=== PATIENT | female | born 1965 | race Caucasian/White ===

== ENCOUNTER 2017-04-18 14:28 | Emergency (ER) | payer MEDICARE ==
[~2017-04-18] VITALS: Ht 170.2 cm; Wt 54.4 kg
--- NOTE | 2017-04-18 15:03 | PHYS DOC ---
Past History Past Medical History: Hypotension, Other Past Surgical History: Cholecystectomy, Other Alcohol Use: None Drug Use: None Adult General Chief Complaint Chief Complaint: SORE THROAT HPI HPI Patient is a 52 year old female who presents with complaint of a lump on her neck. Patient states that she noticed the lump 2 days ago. Patient states over the past 2-3 months she has been having trouble with sore throat. Patient states that her sore throat started to resolve, then patient noticed that she had a lump along the right side of her neck. The patient called her primary care physician's office, and she was instructed to come to the emergency department for further evaluation. Patient denies any shortness of breath or fever associated with her symptoms. Patient states she is otherwise at her baseline state of health. Review of Systems Review of Systems Constitutional: Denies fever or chills [] Eyes: Denies change in visual acuity, redness, or eye pain [] HENT: Sore throat[] Respiratory: Denies cough or shortness of breath [] Cardiovascular: Denies chest pain or edema[] GI: Denies abdominal pain, nausea, vomiting, bloody stools or diarrhea [] : Denies dysuria or hematuria [] Musculoskeletal: Denies back pain or joint pain [] Integument: Denies rash or skin lesions [] Neurologic: Denies headache, focal weakness or sensory changes [] Allergies Allergies Allergies Coded Allergies Type Severity Reaction Last Updated Verified amoxicillin Allergy Intermediate rash 06/06/16 Yes sulfamethoxazole Allergy Intermediate sob 06/06/16 Yes trimethoprim Allergy Intermediate sob 06/06/16 Yes Physical Exam Physical Exam Constitutional: Alert, afebrile, no acute distress. [] HENT: Normocephalic, atraumatic, bilateral external ears normal, oropharynx moist, no oral exudates, nose normal. [] Eyes: PERRLA, EOMI, conjunctiva normal, no discharge. [] Neck: Normal range of motion, 2-1/2 cm right-sided nodular swelling overlying thyroid, supple, no stridor. [] Cardiovascular:Heart rate regular rhythm, no murmur [] Lungs & Thorax: Bilateral breath sounds clear to auscultation [] Abdomen: Bowel sounds normal, soft, no tenderness, no masses, no pulsatile masses. [] Skin: Warm, dry, no erythema, no rash. [] Back: No tenderness, no CVA tenderness. [] Extremities: No tenderness, no cyanosis, no clubbing, ROM intact, no edema. [] Neurologic: Alert and oriented X 3, normal motor function, normal sensory function, no focal deficits noted. [] Current Patient Data Vital Signs Vital Signs Date Time Temp Pulse Resp B/P (MAP) Pulse Ox O2 Delivery O2 Flow Rate FiO2 04/18/17 14:44 98.1 81 20 98 Room Air EKG EKG Not performed[] Radiology/Procedures Radiology/Procedures [address] [id number] IMAGING REPORT Signed PATIENT: CONNER MENARD ACCOUNT: [id number] : 1965 LOCATION: ER AGE: 52 SEX: F EXAM STATUS: REG ER ORD. PHYSICIAN: CAMDEN DUNN MD REASON: right-sided neck swelling, possible nodule PROCEDURE: THYROID ULTRASOUND Ultrasound thyroid Indication: Right-sided neck pain came up yesterday. Patient is on chemotherapy for brain cancer. Technique: Grayscale and color Doppler ultrasound images of the thyroid Comparison: None Findings: The right thyroid lobe measures 4.9 x 2.3 x 2.3 cm with diffusely heterogenous echogenicity. There is a predominantly hypoechoic nodule in the inferior right thyroid lobe measuring 1.6 x 1.1 x 1.4 cm which is well-circumscribed without internal calcifications. Significant vascularity seen in the right thyroid lobe. The left thyroid lobe measures 5.4 x 2.3 x 2.1 cm and is diffusely heterogenous in echogenicity. There is a relatively well-circumscribed mixed echogenicity solid nodule in the inferior pole of the left thyroid measuring 1.4 x 1.4 x 1.1 cm. Second similar lesion superior to the above-mentioned lesion measures 2.3 x 1.8 x 1.5 cm and is well-circumscribed, is wider than taller. Another similar lesion is seen in the superior aspect of the thyroid measuring 1.6 x 1.5 x 1.4 cm. Significant vascularity is seen in the thyroid. No abscess or hematoma. Impression: 1. Significant alteration of the thyroid parenchyma with diffusely heterogenous appearance and multiple nodules as described above. This is nonspecific and may represent multinodular goiter. No abscess or hematoma. Correlate with thyroid function lab values. Nuclear medicine thyroid uptake scan recommended for further evaluation. Thyroid malignancy not ruled out. Follow-up thyroid ultrasound in 3-6 months recommended. DICTATED AND SIGNED BY: JING THOMPSON DO DATE: 04/18/17 1611 CC: CAMDEN DUNN MD; TINA MATHEWS APRN ~ [] Course & Med Decision Making Course & Med Decision Making Pertinent Labs and Imaging studies reviewed. (See chart for details) Ultrasound results show findings concerning for malignancy. Spoke with the patient regarding these findings. The patient is in no acute distress and patient would like to go home at this time. She states that she will follow-up with her primary doctor in the next 3 days for reevaluation and referral for oncology. I do not feel this to be unreasonable and I do not feel that the patient's symptoms will change significantly over the course of the next few days before her reevaluation. I did stress however that if she does have any worsening or severe symptoms including severe shortness of breath, inability to swallow or handle oral secretions, high fevers, or any other worrisome symptoms that she return to the emergency department for reevaluation. Patient voiced understanding and in agreement with treatment plan. Dragon Disclaimer Dragon Disclaimer This chart was dictated in whole or in part using Voice Recognition software in a busy, high-work load, and often noisy Emergency Department environment. It may contain unintended and wholly unrecognized errors or omissions. Departure Departure: Impression: Primary Impression: Multiple thyroid nodules Disposition: HOME, SELF-CARE Condition: STABLE Referrals: TINA MATHEWS APRN (PCP) Patient Instructions: Thyroid Cancer Additional Instructions: Your ultrasound study in the emergency Department showed multiple nodules and your thyroid concerning for possible thyroid cancer. It is recommended that she follow-up in the next 3-5 days with your primary doctor as she will also likely need referral to oncology for further evaluation and treatment. Return to the emergency department for any worsening symptoms. CAMDEN DUNN MD Apr 18, 2017 15:03
--- NOTE | 2017-04-18 16:23 | RAD ---
Ultrasound thyroid Indication: Right-sided neck pain came up yesterday. Patient is on chemotherapy for brain cancer. Technique: Grayscale and color Doppler ultrasound images of the thyroid Comparison: None Findings: The right thyroid lobe measures 4.9 x 2.3 x 2.3 cm with diffusely heterogenous echogenicity. There is a predominantly hypoechoic nodule in the inferior right thyroid lobe measuring 1.6 x 1.1 x 1.4 cm which is well-circumscribed without internal calcifications. Significant vascularity seen in the right thyroid lobe. The left thyroid lobe measures 5.4 x 2.3 x 2.1 cm and is diffusely heterogenous in echogenicity. There is a relatively well-circumscribed mixed echogenicity solid nodule in the inferior pole of the left thyroid measuring 1.4 x 1.4 x 1.1 cm. Second similar lesion superior to the above-mentioned lesion measures 2.3 x 1.8 x 1.5 cm and is well-circumscribed, is wider than taller. Another similar lesion is seen in the superior aspect of the thyroid measuring 1.6 x 1.5 x 1.4 cm. Significant vascularity is seen in the thyroid. No abscess or hematoma. Impression: 1. Significant alteration of the thyroid parenchyma with diffusely heterogenous appearance and multiple nodules as described above. This is nonspecific and may represent multinodular goiter. No abscess or hematoma. Correlate with thyroid function lab values. Nuclear medicine thyroid uptake scan recommended for further evaluation. Thyroid malignancy not ruled out. Follow-up thyroid ultrasound in 3-6 months recommended.
[2017-04-18 17:25] VITALS: BP 124/84
== END 2017-04-18 17:25 | disposition home or self-care (01) ==
LOC: ER 14:28
DX: E04.2 Nontoxic multinodular goiter (principal); Z88.1 Allergy status to other antibiotic agents
CPT/HCPCS: 76536; 99284-25

== ENCOUNTER 2017-09-25 18:15 | Inpatient (IN) | payer MEDICARE ==
[~2017-09-25] VITALS: Ht 170.2 cm; Wt 51.4 kg
[2017-09-25 19:17] LABS: BASO % 1 % (0-3); EOS # 0.1 x10^3/uL (0.0-0.7); EOS % 6 % (0-3); HEMATOCRIT 34.6 % (36.0-47.0); HEMOGLOBIN 12.1 g/dL (12.0-15.5); LYMPH # 0.3 x10^3/uL (1.0-4.8); LYMPH % 13 % (24-48); MEAN CORPUSCULAR HEMOGLOBIN 33 pg (25-35); MEAN CORPUSCULAR HGB CONC 35 g/dL (31-37); MEAN CORPUSCULAR VOLUME 94 fL (79-100); MONO # 0.3 x10^3/uL (0.0-1.1); MONO % 13 % (0-9); NEUT # 1.6 x10^3uL (1.8-7.7); NEUT % 67 % (31-73); PLATELET COUNT 174 x10^3/uL (140-400); RED BLOOD COUNT 3.68 x10^6/uL (3.50-5.40); RED CELL DISTRIBUTION WIDTH 12.6 % (11.5-14.5); WHITE BLOOD COUNT 2.4 x10^3/uL (4.0-11.0)
--- NOTE | 2017-09-25 19:23 | RAD ---
CT HEAD WO CONTRAST History: Speech changes, migraine headache today, history of brain cancer and tumor removal Comparison: June 06, 2016 Technique: Noncontrast CT imaging was performed of the head. Exposure: One or more of the following individualized dose reduction techniques were utilized for this examination: 1. Automated exposure control 2. Adjustment of the mA and/or kV according to patient size 3. Use of iterative reconstruction technique. Findings: No acute intracranial hemorrhage is identified. There has been left frontal parietal temporal craniotomy, large resection cavity centered in the left frontal lobe overall larger than previous exam. Some other ill-defined low-density such as of the left frontal lobe is fairly similar in extent, may be due to component of underlying gliosis. Ventricular size is similar, ex vacuo dilatation left lateral ventricle. There is no midline shift. There is no significant intracranial mass effect. Mastoid air cells and visualized paranasal sinuses are aerated. Impression: 1. There are postsurgical changes, large resection cavity centered in the left frontal lobe. There is no intracranial mass effect or evidence of recent hemorrhage. If there is suspicion for evolving or acute ischemia, follow-up CT or MRI may be beneficial. Electronically signed by: Meliton Dobson MD (09/25/2017 7:20 PM) [facility]
[2017-09-25 19:30] LABS: ALBUMIN 3.3 g/dL (3.4-5.0); ALBUMIN/GLOBULIN RATIO 0.9 (1.0-1.7); CALCIUM 8.7 mg/dL (8.5-10.1); CREATININE 1.1 mg/dL (0.6-1.0); GFR 52.2; POTASSIUM 4.2 mmol/L (3.5-5.1); TOTAL BILIRUBIN 0.4 mg/dL (0.2-1.0); TOTAL PROTEIN 6.9 g/dL (6.4-8.2)
[2017-09-25] MEDS ORDERED: ONDANSETRON PF 4 MG/2 ML VIAL. IV PRN (20:00)
--- NOTE | 2017-09-25 20:30 | PHYS DOC ---
Past History Past Medical History: Hypotension, Other Past Surgical History: Cholecystectomy, Other Alcohol Use: None Drug Use: None Adult General Chief Complaint Chief Complaint: SLURRED SPEECH HPI HPI 52-year-old female with a history of brain cancer with multiple tumors removed from her frontal lobe in August of last year. Patient describes that for months after that surgery she had some abnormalities in her speech and word finding. Her speech returned to normal and patient had been doing well. She is on an oral chemotherapeutic medication currently. Prior to arrival here patient experienced an episode of speech changes were family member describes patient was saying words that were gibberish. Patient states she knew what she wanted to say but the words would not come out correctly. This spontaneously resolved after a short period and she's been at her baseline since. No other complaints. No visual changes or weakness. Patient otherwise asymptomatic with no headache or stiff neck no chest pain or shortness of breath no fevers chills sweats or shaking chills and no abdominal pain. Reports normal bowel bladder habits Review of Systems Review of Systems Constitutional: Denies fever or chills [] Eyes: Denies change in visual acuity, redness, or eye pain [] HENT: Denies nasal congestion or sore throat [] Respiratory: Denies cough or shortness of breath [] Cardiovascular: No additional information not addressed in HPI [] GI: Denies abdominal pain, nausea, vomiting, bloody stools or diarrhea [] : Denies dysuria or hematuria [] Musculoskeletal: Denies back pain or joint pain [] Integument: Denies rash or skin lesions [] Neurologic: Denies headache, focal weakness or sensory changes [] Endocrine: Denies polyuria or polydipsia [] All other systems were reviewed and found to be within normal limits, except as documented in this note. Current Medications Current Medications Current Medications Medications (Trade) Dose Ordered Sig/Shelby Start Time Stop Time Status Last Admin Dose Admin Ondansetron HCl (Zofran) 4 mg PRN Q4HRS PRN 09/25/17 20:00 09/26/17 19:59 Sodium Chloride 1,000 ml @ 125 mls/hr Q8H 09/25/17 19:56 09/26/17 19:55 Allergies Allergies Allergies Coded Allergies Type Severity Reaction Last Updated Verified amoxicillin Allergy Intermediate rash 06/06/16 Yes sulfamethoxazole Allergy Intermediate sob 06/06/16 Yes trimethoprim Allergy Intermediate sob 06/06/16 Yes Physical Exam Physical Exam Chronically weak appearing 52-year-old female in no acute distress. She is cheerful alert communicative and cooperative with normal speech. Patient able to converse normally with baseline mental status. She is a nonfocal neurologic exam and is able to ambulate without difficulty with her cane Constitutional: Well developed, well nourished, no acute distress, non-toxic appearance. [] HENT: Normocephalic, atraumatic, bilateral external ears normal, oropharynx moist, no oral exudates, nose normal. [] Eyes: PERRLA, EOMI, conjunctiva normal, no discharge. [] Neck: Normal range of motion, no tenderness, supple, no stridor. [] Cardiovascular:Heart rate regular rhythm, no murmur [] Lungs & Thorax: Bilateral breath sounds clear to auscultation [] Abdomen: Bowel sounds normal, soft, no tenderness, no masses, no pulsatile masses. [] Skin: Warm, dry, no erythema, no rash. [] Back: No tenderness, no CVA tenderness. [] Extremities: No tenderness, no cyanosis, no clubbing, ROM intact, no edema. [] Neurologic: Alert and oriented X 3, normal motor function, normal sensory function, no focal deficits noted. [] Psychologic: Affect normal, judgement normal, mood normal. [] Current Patient Data Vital Signs Vital Signs Date Time Temp Pulse Resp B/P (MAP) Pulse Ox O2 Delivery O2 Flow Rate FiO2 09/25/17 20:08 70 18 92/59 (70) 100 Room Air 09/25/17 18:37 98.1 Lab Results Laboratory Tests Test 09/25/17 19:06 White Blood Count 2.4 x10^3/uL (4.0-11.0) L Red Blood Count 3.68 x10^6/uL (3.50-5.40) Hemoglobin 12.1 g/dL (12.0-15.5) Hematocrit 34.6 % (36.0-47.0) L Mean Corpuscular Volume 94 fL (79-100) Mean Corpuscular Hemoglobin 33 pg (25-35) Mean Corpuscular Hemoglobin Concent 35 g/dL (31-37) Red Cell Distribution Width 12.6 % (11.5-14.5) Platelet Count 174 x10^3/uL (140-400) Neutrophils (%) (Auto) 67 % (31-73) Lymphocytes (%) (Auto) 13 % (24-48) L Monocytes (%) (Auto) 13 % (0-9) H Eosinophils (%) (Auto) 6 % (0-3) H Basophils (%) (Auto) 1 % (0-3) Neutrophils # (Auto) 1.6 x10^3uL (1.8-7.7) L Lymphocytes # (Auto) 0.3 x10^3/uL (1.0-4.8) L Monocytes # (Auto) 0.3 x10^3/uL (0.0-1.1) Eosinophils # (Auto) 0.1 x10^3/uL (0.0-0.7) Basophils # (Auto) 0.0 x10^3/uL (0.0-0.2) Platelet Estimate Pending Sodium Level 139 mmol/L (136-145) Potassium Level 4.2 mmol/L (3.5-5.1) Chloride Level 104 mmol/L (98-107) Carbon Dioxide Level 28 mmol/L (21-32) Anion Gap 7 (6-14) Blood Urea Nitrogen 15 mg/dL (7-20) Creatinine 1.1 mg/dL (0.6-1.0) H Estimated GFR (Cockcroft-Gault) 52.2 BUN/Creatinine Ratio 14 (6-20) Glucose Level 126 mg/dL (70-99) H Calcium Level 8.7 mg/dL (8.5-10.1) Total Bilirubin 0.4 mg/dL (0.2-1.0) Aspartate Amino Transferase (AST) 22 U/L (15-37) Alanine Aminotransferase (ALT) 37 U/L (14-59) Alkaline Phosphatase 100 U/L (46-116) Troponin I Quantitative < 0.017 ng/mL (0-0.055) Total Protein 6.9 g/dL (6.4-8.2) Albumin 3.3 g/dL (3.4-5.0) L Albumin/Globulin Ratio 0.9 (1.0-1.7) L EKG EKG EKG normal sinus rhythm at 73 normal axis no STEMI nonspecific ST and T-wave findings interpreted by il Radiology/Procedures Radiology/Procedures [] Course & Med Decision Making Course & Med Decision Making Signs and symptoms consistent with TIA with speech changes with spontaneous resolution. Patient stable and exam unremarkable and nonfocal. Full workup shows leukopenia with white blood cell count 2.4 with normal neutrophils. Case discussed with Dr. Mae hospitalist on-call. He is aware the history and findings and agrees with inpatient admission to a telemetry bed for full TIA workup. Pertinent Labs and Imaging studies reviewed. (See chart for details) [] Dragon Disclaimer Dragon Disclaimer This electronic medical record was generated, in whole or in part, using a voice recognition dictation system. Departure Departure: Impression: Primary Impression: TIA (transient ischemic attack) Additional Impression: Episode of change in speech Disposition: 09 ADMITTED INPATIENT Admitting Physician: Juan Luis Mae Condition: STABLE Referrals: TINA MATHEWS APRN (PCP) Problem Qualifiers JORDAN CAMPUZANO MD Sep 25, 2017 20:30
[2017-09-25 20:46] LABS: % BASOS 2 % (0-3); % EOS 3 % (0-5); % LYMPHS 13 % (24-48); % MONOS 12 % (0-10); % SEGS 70 % (35-66)
[2017-09-25 21:50] VITALS: BP 108/60
[2017-09-25] MEDS ORDERED: TEMO20CA PO (21:51)
[2017-09-25] MEDS ORDERED: LORazepam 1 MG TABLET PO SCH (22:00)
[2017-09-25 22:06] LABS: PLT ESTIMATE ADEQUATE (ADEQUATE)
[2017-09-25 22:16] LABS: OVALOCYTES FEW
[2017-09-25] MEDS: TEMOZOLOMIDE 20 MG PO SCH (22:31)
[2017-09-25] MEDS: IV NORMAL SALINE 1,000ML 1,000 ML IV SCH (22:33)
[2017-09-25 23:00] VITALS: BP 82/53
[2017-09-26] VITALS (8 sets, daily range): BP systolic 77–95; BP diastolic 48–60
[2017-09-26] MEDS: IV NORMAL SALINE 1,000ML 1,000 ML IV SCH (05:28)
[2017-09-26] MEDS ORDERED: LEVOTHYROXINE 25 MCG TABLET. PO SCH (07:00)
[2017-09-26] MEDS ORDERED: CELECOXIB 200 MG CAPSULE PO SCH (09:00)
--- NOTE | 2017-09-26 09:13 | EKG ---
[address] [address] Test Date: 2017-09-25 Test Time: 18:54:48 Pat Name: CONNER MENARD Department: Room: Gender: F Staff Midwife/Apprenticeship Director: MANUELA : 1965 Requested By: JORDAN CAMPUZANO Order Number: [id number] Reading MD: Measurements Intervals Almo Rate: 73 P: 42 [place]: 168 QRS: 63 QRSD: 66 T: 48 QT: 386 QTc: 429 Interpretive Statements SINUS RHYTHM T ABNORMALITY IN ANTEROSEPTAL LEADS ABNORMAL ECG RI6.01 No previous ECG available for comparison
[2017-09-26] MEDS: TEMOZOLOMIDE 20 MG PO SCH (12:01)
[2017-09-26] MEDS ORDERED: ONDA4TAB11 PO (13:17)
[2017-09-26] MEDS ORDERED: CELE200C PO (13:17)
[2017-09-26] MEDS ORDERED: LEVO25TA4 PO (13:17)
[2017-09-26] MEDS ORDERED: LORA1TAB PO (13:17)
[2017-09-26] MEDS ORDERED: ONDANSETRON ODT 4 MG TAB.RAPDIS PO PRN (13:30)
--- NOTE | 2017-09-26 18:30 | SSS ---
ADMIT DATE: 09/26/2017 HISTORY OF PRESENT ILLNESS: The patient is a 52-year-old female patient, who is known to have a brain tumor that removed from her frontal lobe in 08/2016. She stated that she had for 4 months. After that the surgery, she had some abnormalities in her speech and word finding. Her speech has finally returned to normal and the patient had been doing well. She is on oral chemotherapeutic medication. Prior to arrival to the Emergency Room, she experienced an episode of speech changes that the family describes as gibberish. She stated that she knew what she wanted to say, but the words would not come out correctly. This has spontaneously resolved after a short period of time and by the time she arrived here, she has been back to her baseline. No other complaints in particular. No visual changes, no focal weakness, and no headache and she was evaluated in the Emergency Room and had had a CT scan of the head, which basically showed that there are postsurgical changes, large resection cavity centered in the left frontal lobe. There is no intracranial mass effect or evidence of recent hemorrhage. There is suspicious for evolving acute ischemia. Followup CT or MRI may be beneficial. The patient was admitted for observation and has remained stable and according to her, she has back to her baseline. She was able to communicate clearly and there is no evidence of any abnormality in her speech. 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 She was tumor-free for almost 7-1/2 years ____ in 08/2016 and has since been has had a surgical resection and also chemotherapy. Other medical problems include hypothyroidism. PAST SURGICAL HISTORY: Past surgical history is significant for appendectomy, cholecystectomy, and colonoscopy. ALLERGIES: She is allergic to AMOXICILLIN and BACTRIM. MEDICATIONS: She is currently on following medications: She is on Celebrex 200 mg once a day, levothyroxine sodium 25 mcg once a day, lorazepam 1 mg at bedtime, Zofran 4 mg every 6 hours, and temozolomide 20 mg twice a day. FAMILY HISTORY: She has 4 sisters and 3 brothers. One sister has migraine headache and the other has breast cancer. The other two are relatively healthy. Her father has Alzheimer's disease and her mother is still alive with ____ senile macular degeneration. SOCIAL HISTORY: She is single, never , has no children. She does not smoke, drink alcohol, or recreational drugs. 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 REVIEW OF SYSTEMS: She has cataract in left eye, but denied any blurring of vision, glaucoma or macular degeneration. Denied any earache, tinnitus or sensorineural deafness. Denied nosebleeds, stuffy nose or postnasal drip. Denied any sore throat, sore tongue, toothache, hoarseness of voice or difficulty swallowing. Denied any nausea, vomiting, diarrhea or constipation. Denied any hematemesis, melena or hematochezia. Denied any dysuria, frequency or hematuria. Denied any chest pain, shortness of breath, orthopnea or paroxysmal nocturnal dyspnea. PHYSICAL EXAMINATION: GENERAL: On examining her, she looked well and was clearly in no apparent respiratory distress, pale, no jaundice, cyanosis, or thyromegaly. No jugular venous distention. No limb edema. VITAL SIGNS: Her heart rate was 52, blood pressure was in the ____, her temperature was 98.1, respiratory rate was 16, and oxygen saturation was 97% on room air. HEAD, EYES, NOSE AND THROAT: Showed normocephalic, atraumatic. NECK: Supple. HEART: Showed normal first and second sounds. No gallop, rub or murmur. CHEST: Clear to auscultation. No crepitation or rhonchi. ABDOMEN: Distended, soft, nontender. NEUROLOGIC: She was awake, alert, responding appropriately. Her cranial nerves are intact. She moves extremities without difficulty. She ambulates with a cane. LABORATORY AND DIAGNOSTIC DATA: Her lab work showed that her white cell count was 2400, hemoglobin 12, hematocrit 34, MCV 94, and platelet count of 131,000. Her chemistry showed a serum sodium 139, potassium 4.2, chloride 104, bicarbonate 28, anion gap of 7, BUN 15, creatinine 1.1, estimated GFR was 52 mL per minute. Her glucose 126, calcium was 8.7. Total bilirubin, AST, ALT, alkaline phosphatase were normal. Total protein was 6.9, albumin 3.3. The CT scan of the head showed that there are postsurgical changes with large resection cavity centered in the left frontal lobe. There is no intracranial mass effect or evidence of recent hemorrhage. There is suspicion for evolving or acute ischemia. Followup CT scan or MRI may be beneficial. ASSESSMENT AND PLAN: 1. The patient remained stable as all her symptoms have resolved and she is back to baseline. A decision was made to discharge her home and we will arrange for her to have an MRI, hopefully on Friday at [facility] to arrange for it to be clouded to her oncologist at [facility]. Meanwhile, she should continue with all her medication, so alteration her speech that has resolved. 2. Brain tumor, status post resections x 2, treated with chemotherapy and radiation therapy. 3. Hypothyroidism. RANDA RAI MD DR: BLAKE/joel JOB#: [id number] / [id number]
[2017-09-26] MEDS ORDERED: LORazepam 1 MG TABLET PO SCH (21:00)
[2017-09-27] MEDS ORDERED: CELECOXIB 200 MG CAPSULE PO SCH (09:00)
[2017-09-27] MEDS ORDERED: LEVOTHYROXINE 25 MCG TABLET. PO SCH (09:00)
== END 2017-09-26 14:40 | disposition home or self-care (01) | DRG 69 ==
LOC: ER 18:15 → ICU 20:00
PROVIDERS: ADMIT Internal Medicine; ATTEND Internal Medicine
DX: I67.82 Cerebral ischemia (principal); E03.9 Hypothyroidism, unspecified; Z80.3 Family history of malignant neoplasm of breast; Z88.1 Allergy status to other antibiotic agents; Z88.8 Allergy status to other drugs, medicaments and biological substances; Z82.0 Family history of epilepsy and other diseases of the nervous system; Z83.518 Family history of other specified eye disorder; Z85.841 Personal history of malignant neoplasm of brain; Z90.49 Acquired absence of other specified parts of digestive tract; Z92.21 Personal history of antineoplastic chemotherapy; Z92.3 Personal history of irradiation; Z88.2 Allergy status to sulfonamides
CPT/HCPCS: 36415; 70450; 80053; 84484; 85007; 85025; 87641; 93005; 99285-25; J7030

== ENCOUNTER 2018-12-08 11:19 | Emergency (ER) | payer MEDICARE ==
[~2018-12-08] VITALS: Ht 167.6 cm; Wt 55.0 kg
[~2018-12-08 11:19] MED LIST: CELE200C PO; LEVO25TA4 PO; LORA-254 PO; ONDA4TAB11 PO; TEMO20CA PO
[2018-12-08 11:43] VITALS: BP 114/43
--- NOTE | 2018-12-08 12:11 | PHYS DOC ---
Past History Past Medical History: Hypotension, Seizure, Other Past Surgical History: Cholecystectomy, Other Alcohol Use: None Drug Use: None Adult General Chief Complaint Chief Complaint: MECHANICAL FALL HPI HPI 53 yo female presents after fall at home. She was walking and tripped. She denies syncope or dizziness. She denies LOC. She has a known brain tumor with some left sided deficits at baseline. The patient's family accompanies her and is concerned that she was not fully aware of her surroundings after the fall. This has improved at this time. The patient's only complaint now is she has some left hand pain. There is bruising over the metacarpals of her left hand. Patient has been feeling normal prior to this. No fever or chills. Review of Systems Review of Systems Constitutional: Denies fever or chills [] Eyes: Denies change in visual acuity, redness, or eye pain [] HENT: Denies nasal congestion or sore throat [] Respiratory: Denies cough or shortness of breath [] Cardiovascular: No additional information not addressed in HPI [] GI: Denies abdominal pain, nausea, vomiting, bloody stools or diarrhea [] : Denies dysuria or hematuria [] Musculoskeletal: Left hand pain[] Integument: Denies rash or skin lesions [] Neurologic: Denies headache, focal weakness or sensory changes [] Endocrine: Denies polyuria or polydipsia [] All other systems were reviewed and found to be within normal limits, except as documented in this note. Allergies Allergies Allergies Coded Allergies Type Severity Reaction Last Updated Verified amoxicillin Allergy Intermediate rash 06/06/16 Yes sulfamethoxazole Allergy Intermediate sob 06/06/16 Yes trimethoprim Allergy Intermediate sob 06/06/16 Yes Physical Exam Physical Exam Constitutional: Well developed, well nourished, no acute distress, non-toxic appearance. [] HENT: Normocephalic, atraumatic, bilateral external ears normal, oropharynx moist, no oral exudates, nose normal. [] Eyes: PERRLA, EOMI, conjunctiva normal, no discharge. [] Neck: Normal range of motion, no tenderness, supple, no stridor. [] Cardiovascular:Heart rate regular rhythm, no murmur [] Lungs & Thorax: Bilateral breath sounds clear to auscultation [] Abdomen: Bowel sounds normal, soft, no tenderness, no masses, no pulsatile masses. [] Skin: Warm, dry, no erythema, no rash. [] Back: No tenderness, no CVA tenderness. [] Extremities: Tenderness and ecchymosis over the dorsum of the left hand[] Neurologic: Alert and oriented X 3, left sided weakness at baseline, normal sensory function, no focal deficits noted. [] Psychologic: Affect normal, judgement normal, mood normal. [] Current Patient Data Vital Signs Vital Signs Date Time Temp Pulse Resp B/P (MAP) Pulse Ox O2 Delivery O2 Flow Rate FiO2 12/08/18 11:43 97.8 67 16 114/43 (66) 98 Room Air EKG EKG [] Radiology/Procedures Radiology/Procedures [] Impressions: HAND LEFT 3V History: Fall Comparison: None. Findings: 3 views of the left hand are submitted. Precise site of pain is not indicated. There is degree of bone demineralization. No acute fracture or dislocation is identified. Impression: 1. No acute fracture is identified, site of pain not indicated. Electronically signed by: Lynnette Coyne MD (12/08/2018 12:07 PM) [id number] DICTATED AND SIGNED BY: LYNNETTE COYNE MD DATE: 12/08/18 120 CC: CAT HAWKINS DO; CONNER GUNDERSON ~ CT HEAD WO CONTRAST Indication: Altered mental status, fall. Exposure: One or more of the following individualized dose reduction techniques were utilized for this examination: 1. Automated exposure control 2. Adjustment of the mA and/or kV according to patient size 3. Use of iterative reconstruction technique. Technique: Standard imaging without intravenous contrast. Comparison with September 25, 2017. Large low-density region in the left frontal lobe is again identified, appears similar in size and appearance as prior study. There is adjacent low-density compatible with encephalomalacia or gliosis as well as ex vacuo dilatation of the left lateral ventricle appears similar. There is a left craniectomy defect again seen. No evidence of acute intracranial hemorrhage or abnormal extra-axial fluid collection. The partially visualized sinuses and mastoids are clear. Partially visualized orbits are symmetric. No large scalp hematoma is seen. IMPRESSION: 1. Chronic abnormalities in the left frontal lobe appears stable. 2. No evidence of acute intracranial hemorrhage. Electronically signed by: Pratik Sun MD (12/08/2018 12:20 PM) [id number] DICTATED AND SIGNED BY: PRATIK SUN MD DATE: 12/08/18 1220 CC: CAT HAWKINS DO; CONNER GUNDERSON ~ Course & Med Decision Making Course & Med Decision Making Pertinent Labs and Imaging studies reviewed. (See chart for details) The patient's hand x-rays negative for fracture or dislocation. Her head CT is similar to previous September 2017. There are no acute findings. The patient appeared to be back at baseline. She is stable for discharge at this time. [] Dragon Disclaimer Dragon Disclaimer This electronic medical record was generated, in whole or in part, using a voice recognition dictation system. Departure Departure: Impression: Primary Impression: Accident due to mechanical fall without injury Disposition: HOME, SELF-CARE Condition: STABLE Referrals: CONNER GUNDERSON (PCP) Patient Instructions: Fall Prevention and Home Safety, [id number] Problem Qualifiers Primary Impression: Accident due to mechanical fall without injury Encounter type: initial encounter Qualified Codes: W19.XXXA - Unspecified fall, initial encounter CAT HAWKINS DO December 08, 2018 12:11
--- NOTE | 2018-12-08 12:23 | RAD ---
CT HEAD WO CONTRAST Indication: Altered mental status, fall. Exposure: One or more of the following individualized dose reduction techniques were utilized for this examination: 1. Automated exposure control 2. Adjustment of the mA and/or kV according to patient size 3. Use of iterative reconstruction technique. Technique: Standard imaging without intravenous contrast. Comparison with September 25, 2017. Large low-density region in the left frontal lobe is again identified, appears similar in size and appearance as prior study. There is adjacent low-density compatible with encephalomalacia or gliosis as well as ex vacuo dilatation of the left lateral ventricle appears similar. There is a left craniectomy defect again seen. No evidence of acute intracranial hemorrhage or abnormal extra-axial fluid collection. The partially visualized sinuses and mastoids are clear. Partially visualized orbits are symmetric. No large scalp hematoma is seen. IMPRESSION: 1. Chronic abnormalities in the left frontal lobe appears stable. 2. No evidence of acute intracranial hemorrhage. Electronically signed by: Pratik Sun MD (12/08/2018 12:20 PM) [id number]
== END 2018-12-08 12:46 | disposition home or self-care (01) ==
LOC: ER 11:19
DX: S60.222A Contusion of left hand, initial encounter (principal); D49.6 Neoplasm of unspecified behavior of brain; I95.9 Hypotension, unspecified; Z88.1 Allergy status to other antibiotic agents; Z88.2 Allergy status to sulfonamides; W01.0XXA Fall on same level from slipping, tripping and stumbling without subsequent striking against object, initial encounter; Y93.01 Activity, walking, marching and hiking; Y92.098 Other place in other non-institutional residence as the place of occurrence of the external cause; Y99.8 Other external cause status
CPT/HCPCS: 70450; 73130; 99284-25

== ENCOUNTER → 2019-08-10 | Outpatient (CLI) | payer MEDICAID, MEDICARE ==
[~2019-08-10] MED LIST changes: +ONDA-84 PO; -ONDA4TAB11 PO
--- NOTE | 2019-08-11 15:26 | RAD ---
EXAM: BILATERAL DIGITAL SCREENING MAMMOGRAPHY. HISTORY: Routine mammographic screening. TECHNIQUE: Bilateral full field digital images were obtained in CC and MLO projections. Computer-aided detection was applied. COMPARISON: None available. This is interpreted as a baseline study. COMPOSITION: B. There are scattered areas of fibroglandular density. FINDINGS: A mildly lobulated nodule is seen inferiorly and medially on the right. Another circumscribed nodule is seen superiorly on the right MLO view, not clearly included on the CC view. There is no clearly suspicious finding on the left. BI-RADS CATEGORY 0: Incomplete--Needs Additional Imaging Evaluation. RECOMMENDATION: 1. Exaggerated lateral CC view on the right to assess a circumscribed nodule superiorly on the right. 2. Sonography of the right lower inner nodule, and likely a right upper outer nodule to reestablish the patient's baseline. If prior examinations become available, these could be compared for stability prior to further assessment. Electronically signed by: Aung Guzman MD (08/11/2019 3:23 PM) [id number]
== END | disposition home or self-care (01) ==
LOC: MAMMO 13:36
PROVIDERS: ATTEND Physician Assistant Medical
DX: Z12.31 Encounter for screening mammogram for malignant neoplasm of breast (principal); N63.10 Unspecified lump in the right breast, unspecified quadrant
CPT/HCPCS: 77067

== ENCOUNTER → 2019-08-20 | Outpatient (CLI) | payer MEDICARE ==
--- NOTE | 2019-08-20 14:38 | RAD ---
Examination: 1. Right diagnostic mammogram. 2. Limited right breast ultrasound. INDICATION: Screening recall for right breast nodules on new baseline screening mammogram. COMPARISON: Bilateral mammogram of August 10, 2019. TECHNIQUE: A full-field right X CCL view of the right breast was performed after which targeted ultrasound of the inferior and lateral right breast was performed with grayscale and color Doppler imaging. FINDINGS: Heterogeneously dense breast parenchyma. No dominant mass, architectural distortion or suspicious calcifications are revealed on the additional view obtained at this visit. The nodularity identified on screening mammogram is obscured by the dense breast parenchyma. Targeted ultrasound of the right breast identified multiple sonographically benign cysts, largest measuring 7 mm at the right 4:00 position 4 cm from the nipple. No suspicious sonographic findings were identified. IMPRESSION: Benign findings in the right breast on targeted ultrasound. No evidence of malignancy. Recommend return to routine screening next doing one year. BI-RADS Category 2 Benign findings Patient entered into a reminder system with target due date for next mammogram.
== END | disposition home or self-care (01) ==
LOC: US 12:56
PROVIDERS: ATTEND Physician Assistant Medical
DX: R92.2 Inconclusive mammogram (principal)
CPT/HCPCS: 76641; 77065

== ENCOUNTER → 2019-08-24 | Outpatient (CLI) | payer MEDICARE ==
[2019-08-24 09:22] LABS: BASO # 0.1 x10^3/uL (0.0-0.2); BASO % 1 % (0-3); EOS # 0.2 x10^3/uL (0.0-0.7); EOS % 3 % (0-3); HEMATOCRIT 38.2 % (36.0-47.0); HEMOGLOBIN 12.4 g/dL (12.0-15.5); LYMPH # 1.8 x10^3/uL (1.0-4.8); LYMPH % 27 % (24-48); MEAN CORPUSCULAR HEMOGLOBIN 28 pg (25-35); MEAN CORPUSCULAR HGB CONC 33 g/dL (31-37); MEAN CORPUSCULAR VOLUME 87 fL (79-100); MONO # 0.4 x10^3/uL (0.0-1.1); MONO % 7 % (0-9); NEUT # 4.2 x10^3uL (1.8-7.7); NEUT % 63 % (31-73); PLATELET COUNT 278 x10^3/uL (140-400); RED BLOOD COUNT 4.38 x10^6/uL (3.50-5.40); RED CELL DISTRIBUTION WIDTH 13.2 % (11.5-14.5); WHITE BLOOD COUNT 6.7 x10^3/uL (4.0-11.0)
[2019-08-24 09:57] LABS: ALBUMIN 3.5 g/dL (3.4-5.0); ALBUMIN/GLOBULIN RATIO 0.9 (1.0-1.7); CALCIUM 8.6 mg/dL (8.5-10.1); CREATININE 1.1 mg/dL (0.6-1.0); GFR 51.8; POTASSIUM 3.9 mmol/L (3.5-5.1); TOTAL BILIRUBIN 0.3 mg/dL (0.2-1.0); TOTAL PROTEIN 7.4 g/dL (6.4-8.2)
[2019-08-24 14:31] LABS: FREE T4 1.63 ng/dL (0.76-1.46)
[2019-08-24 14:50] LABS: THYROID STIM HORMONE (TSH) 2.983 uIU/mL (0.358-3.740)
== END | disposition home or self-care (01) ==
LOC: LAB 08:34
PROVIDERS: ATTEND Physician Assistant Medical
DX: E04.2 Nontoxic multinodular goiter (principal); M62.81 Muscle weakness (generalized); Z79.899 Other long term (current) drug therapy
CPT/HCPCS: 36415; 80053; 80061; 82306; 82607; 84439; 84443; 84481; 85025